=== PATIENT | female | born 1990 | race Two or more races ===

== ENCOUNTER 2020-10-21 09:16 | Day surgery (SDC) | payer OTHER ==
[~2020-10-21 09:16] MED LIST: NAPROXEN SODIU550 M1 PO; VITAMIN D3 PO; ZINC50 M1 PO; [UNRECOGNIZED DRUG - OTHER] PO
== END 2020-10-21 17:45 | disposition home or self-care (01) ==
LOC: CIR.AMB 09:16
PROVIDERS: ATTEND Obstetrics & Gynecology
DX: N84.0 Polyp of corpus uteri (principal); Z20.822 Contact with and (suspected) exposure to COVID-19

== ENCOUNTER 2023-09-20 06:46 | Emergency (ER) | payer OTHER ==
[~2023-09-20] VITALS: Ht 167.6 cm; Wt 73.9 kg
[2023-09-20 08:32] LABS: URINE APPEARANCE Clear; URINE BILIRRUBIN Negative (NEGATIVE); URINE BLOOD Large; URINE COLOR Yellow; URINE GLUCOSE Negative (NEGATIVE); URINE LEUKOCYTE Negative; URINE NITRATE Negative; URINE PROTEIN Negative (NEGATIVE); URINE UROBILINOGEN 0.2 E.U./dl
[2023-09-20 08:33] LABS: HEMATOCRIT 42.7 % (36.0-45.00); HEMOGLOBIN 14.3 g/dL (12.0-15.00); MEAN CORPUSCULAR HEMOGLOBIN 26.8 pg (27.00-32.0); MEAN CORPUSCULAR HGB CONC 33.5 g/dl (32.0-36.0); PLATELET COUNT 292 K/uL (150-450); RED BLOOD COUNT 5.33 M/uL (4.00-6.00); RED CELL DISTRIBUTION WIDTH 14.7 % (11.5-14.5); URINE EPITHELIAL CELLS 15.6 uL (0.0-38.8); URINE WBC 7.8 uL (0.0-23.2)
[2023-09-20 09:11] LABS: INR 1.03; PARTIAL THROMBOPLASTIN TIME 26.8 SECONDS (22.0-34.0); PROTHROMBIN TIME 10.8 SECONDS (9.0-11.5)
[2023-09-20 09:24] LABS: CALCIUM 9.1 mg/dL (8.5-10.1); CREATININE SERUM 0.77 mg/dL (0.55-1.02); GFR 85.81; POTASSIUM 3.73 mEq/L (3.5-5.1)
== END 2023-09-20 13:12 | disposition home or self-care (01) ==
LOC: ER 06:46
PROVIDERS: General Practice
DX: O20.9 Hemorrhage in early pregnancy, unspecified (principal); Z3A.01 Less than 8 weeks gestation of pregnancy

== ENCOUNTER 2023-10-09 08:03 | Outpatient (CLI) | payer OTHER | END 2023-10-09 08:04 | disposition home or self-care (01) | LOC: PRENATAL 08:03 | PROVIDERS: ATTEND Obstetrics & Gynecology Maternal & Fetal Medicine | DX: O36.80X0 Pregnancy with inconclusive fetal viability, not applicable or unspecified (principal); O09.519 Supervision of elderly primigravida, unspecified trimester; O26.899 Other specified pregnancy related conditions, unspecified trimester; Z3A.08 8 weeks gestation of pregnancy ==

== ENCOUNTER → 2023-11-09 08:49 | Outpatient (CLI) | payer OTHER | END | disposition home or self-care (01) | LOC: PRENATAL 08:49 | PROVIDERS: ATTEND Obstetrics & Gynecology Maternal & Fetal Medicine | DX: O36.80X0 Pregnancy with inconclusive fetal viability, not applicable or unspecified (principal); O09.519 Supervision of elderly primigravida, unspecified trimester; Z36.82 Encounter for antenatal screening for nuchal translucency; Z36.9 Encounter for antenatal screening, unspecified; Z3A.13 13 weeks gestation of pregnancy ==

== ENCOUNTER 2023-11-26 13:51 | Emergency (ER) | payer OTHER ==
[~2023-11-26] VITALS: Ht 170.2 cm; Wt 75.3 kg
[2023-11-26] MEDS ORDERED: PRENA1 TRUE CO1 EACH PO (14:18)
[2023-11-26 17:30] LABS: HEMATOCRIT 39.1 % (36.0-45.00); HEMOGLOBIN 13.5 g/dL (12.0-15.00); MEAN CELL VOLUME 79.9 fL (80.00-100.00); MEAN CORPUSCULAR HEMOGLOBIN 27.5 pg (27.00-32.0); MEAN CORPUSCULAR HGB CONC 34.4 g/dl (32.0-36.0); PLATELET COUNT 253 K/uL (150-450); RED CELL DISTRIBUTION WIDTH 14.4 % (11.5-14.5)
[2023-11-26 17:41] LABS: INR 0.98; PARTIAL THROMBOPLASTIN TIME 26.1 SECONDS (22.0-34.0); PROTHROMBIN TIME 10.3 SECONDS (9.0-11.5)
[2023-11-26 18:12] LABS: ALBUMIN 3.5 gm/dL (3.4-5.0); BILIRUBIN TOTAL 0.21 mg/dL (0.3-1.2); CALCIUM 9.3 mg/dL (8.5-10.1); CREATININE SERUM 0.62 mg/dL (0.55-1.02); GFR 110.19; GLOBULINA 3.3 G/DL (2.4-3.5); POTASSIUM 3.93 mEq/L (3.5-5.1); TOTAL PROTEIN 6.8 gm/dL (6.4-8.2)
[2023-11-26 19:55] LABS: URINE APPEARANCE Clear; URINE BILIRRUBIN Negative (NEGATIVE); URINE BLOOD Negative; URINE COLOR Yellow; URINE LEUKOCYTE Trace; URINE NITRATE Negative; URINE PROTEIN Negative (NEGATIVE); URINE UROBILINOGEN 0.2 E.U./dl
[2023-11-26 19:58] LABS: URINE BACTERIA 433.3 uL (0.0-1933); URINE EPITHELIAL CELLS 23.7 uL (0.0-38.8); URINE RBC 4.4 uL (0.0-20.8); URINE WBC 15.6 uL (0.0-23.2)
[2023-11-26 20:14] LABS: URINE GLUCOSE 100 MG/DL (NEGATIVE)
== END 2023-11-26 20:30 | disposition home or self-care (01) ==
LOC: ER 13:52
PROVIDERS: General Practice
DX: O20.8 Other hemorrhage in early pregnancy (principal); Z3A.15 15 weeks gestation of pregnancy

== ENCOUNTER 2023-11-29 13:58 | Outpatient (CLI) | payer OTHER ==
[~2023-11-29 13:58] MED LIST changes: +PRENA1 TRUE CO1 EACH PO
== END 2023-11-29 14:05 | disposition home or self-care (01) ==
LOC: PRENATAL 13:58
PROVIDERS: ATTEND Obstetrics & Gynecology Maternal & Fetal Medicine
DX: O26.849 Uterine size-date discrepancy, unspecified trimester (principal); O26.879 Cervical shortening, unspecified trimester; Z3A.16 16 weeks gestation of pregnancy

== ENCOUNTER 2023-12-05 08:59 | Day surgery (SDC) | payer OTHER ==
[2023-12-05] MEDS ORDERED: METRONIDAZOLE/SODIUM CHLORIDE 500 MG/100 ML PIGGYBACK IV ONE ×2 (13:53→17:00)
[2023-12-05] MEDS ORDERED: POVIDONE-IODINE 118 ML BOTT TOP ONE ×2 (15:37→17:00)
== END 2023-12-05 21:40 | disposition home or self-care (01) ==
LOC: CIR.AMB 08:59
PROVIDERS: ATTEND Obstetrics & Gynecology Maternal & Fetal Medicine
DX: O26.872 Cervical shortening, second trimester (principal); Z3A.16 16 weeks gestation of pregnancy

== ENCOUNTER 2023-12-25 11:13 | Outpatient (CLI) | payer OTHER | END 2023-12-25 11:14 | disposition home or self-care (01) | LOC: PRENATAL 11:13 | PROVIDERS: ATTEND Obstetrics & Gynecology Maternal & Fetal Medicine | DX: O35.3XX0 Maternal care for (suspected) damage to fetus from viral disease in mother, not applicable or unspecified (principal); O44.00 Complete placenta previa NOS or without hemorrhage, unspecified trimester; O09.519 Supervision of elderly primigravida, unspecified trimester; Z3A.19 19 weeks gestation of pregnancy ==

== ENCOUNTER 2024-04-08 10:51 | Outpatient (CLI) | payer OTHER | END 2024-04-08 10:52 | disposition home or self-care (01) | LOC: PRENATAL 10:51 | PROVIDERS: ATTEND Obstetrics & Gynecology Maternal & Fetal Medicine | DX: O26.843 Uterine size-date discrepancy, third trimester (principal); O36.8130 Decreased fetal movements, third trimester, not applicable or unspecified; O09.513 Supervision of elderly primigravida, third trimester; O34.33 Maternal care for cervical incompetence, third trimester; Z3A.34 34 weeks gestation of pregnancy ==

== ENCOUNTER 2024-04-19 22:53 | Inpatient (IN) | payer OTHER ==
[~2024-04-19] VITALS: Ht 170.2 cm; Wt 81.2 kg
[2024-04-19] MEDS ORDERED: AMPICILLIN SODIUM 2,000 MG VIAL IV STA (22:54)
[2024-04-19] MEDS ORDERED: MISOPROSTOL 25 MCG/4 ML GEL.W.APPL VAG STA (22:57)
[2024-04-19] MEDS ORDERED: RINGERS SOLUTION,LACTATED 1,000 ML IV SCH (23:00)
[2024-04-19 23:31] LABS: HEMATOCRIT 40.2 % (36.0-45.00); HEMOGLOBIN 13.5 g/dL (12.0-15.00); MEAN CELL VOLUME 77.7 fL (80.00-100.00); MEAN CORPUSCULAR HEMOGLOBIN 26.1 pg (27.00-32.0); MEAN CORPUSCULAR HGB CONC 33.6 g/dl (32.0-36.0); PH,URINE 5.5 (5.0-8.0); PLATELET COUNT 178 K/uL (150-450); RED BLOOD COUNT 5.17 M/uL (4.00-6.00); RED CELL DISTRIBUTION WIDTH 13.8 % (11.5-14.5); URINE APPEARANCE Clear; URINE BILIRRUBIN Negative (NEGATIVE); URINE BLOOD Small; URINE COLOR Yellow; URINE GLUCOSE Negative (NEGATIVE); URINE KETONE Trace (NEGATIVE); URINE LEUKOCYTE Negative; URINE NITRATE Negative; URINE PROTEIN Negative (NEGATIVE); URINE UROBILINOGEN 0.2 E.U./dl
[2024-04-19 23:34] LABS: URINE BACTERIA 1297.6 uL (0.0-1933); URINE EPITHELIAL CELLS 17.1 uL (0.0-38.8); URINE RBC 22.2 uL (0.0-20.8); URINE WBC 9.1 uL (0.0-23.2)
[2024-04-20] LABS: INR 0.96; PARTIAL THROMBOPLASTIN TIME 25.7 SECONDS (22.0-34.0); PROTHROMBIN TIME 10.1 SECONDS (9.0-11.5)
[2024-04-20 00:34] LABS: CREATININE SERUM 0.73 mg/dL (0.55-1.02); GFR 90.72; POTASSIUM 4.09 mEq/L (3.5-5.1)
[2024-04-20] MEDS ORDERED: AMPICILLIN SODIUM 1,000 MG VIAL IV SCH (04:00)
[2024-04-20] MEDS ORDERED: CHLORHEXIDINE GLUCONATE 120 ML BOTTLE TOP ONE (06:20)
[2024-04-20] MEDS ORDERED: ERYTHROMYCIN BASE 1 GM TUBE OP ONE (06:20)
[2024-04-20] MEDS ORDERED: LIDOCAINE HCL 1% 10ML VIAL ONE (06:20)
[2024-04-20] MEDS ORDERED: OXYTOCIN 20 UNITS/1000ML RL PIGGYBAG IV ONE (06:20)
[2024-04-20] MEDS ORDERED: OXYTOCIN 10 UNITS/ML VIAL ONE (06:21)
[2024-04-20] MEDS ORDERED: OXYTOCIN 20 UNITS/500ML RL PIGGYBAG IV ONE ×2 (07:17→10:30)
[2024-04-20] MEDS ORDERED: IBUprofen 400 MG TABLET PO PRN (08:45)
[2024-04-20] MEDS ORDERED: OXYTOCIN 1,000 ML IV SCH (09:15)
[2024-04-20] MEDS ORDERED: CHLORHEXIDINE GLUCONATE 120 ML BOTTLE TP SCH (09:15)
[2024-04-20] MEDS ORDERED: ERYTHROMYCIN BASE 1 GM TUBE OP SCH (09:15)
[2024-04-20] MEDS ORDERED: OXYTOCIN 10 UNITS/ML VIAL IM STA (09:15)
[2024-04-20] MEDS ORDERED: OXYTOCIN 500 ML IV ONE (10:30)
[2024-04-20 11:35] LABS: ABG PH 7.292 (7.35-7.45); ABG pCO2 47.1 mmHg (35-45); BASE EXCESS -4.5 mmol/l; SaO2 36.6 %
[2024-04-20 11:36] LABS: ABG PO2 25.2 mmHg (80-100); BICARBONATE 22.2 mmol/l (23-25); Tco2 23.7 mmol/l; o2 21 %; puncture site UMBILICAL
[2024-04-20 14:21] LABS: HEMATOCRIT 38.1 % (36.0-45.00); HEMOGLOBIN 12.8 g/dL (12.0-15.00); MEAN CELL VOLUME 77.7 fL (80.00-100.00); MEAN CORPUSCULAR HEMOGLOBIN 26.2 pg (27.00-32.0); MEAN CORPUSCULAR HGB CONC 33.7 g/dl (32.0-36.0); PLATELET COUNT 180 K/uL (150-450); RED BLOOD COUNT 4.91 M/uL (4.00-6.00); RED CELL DISTRIBUTION WIDTH 13.6 % (11.5-14.5)
== END 2024-04-22 10:23 | disposition home or self-care (01) | DRG 805 ==
LOC: LDR 22:53 → OB/GYN 04-20 11:35
PROVIDERS: Obstetrics & Gynecology; ADMIT Obstetrics & Gynecology; ATTEND Obstetrics & Gynecology
PROC: 3E033VJ Introduction of Other Hormone into Peripheral Vein, Percutaneous Approach (ICD-10-PCS; 2024-04-19)
PROC: 10E0XZZ Delivery of Products of Conception, External Approach (ICD-10-PCS; principal; 2024-04-20)
PROC: 0HQ9XZZ Repair Perineum Skin, External Approach (ICD-10-PCS; 2024-04-20)
PROC: 4A1HXCZ Monitoring of Products of Conception, Cardiac Rate, External Approach (ICD-10-PCS; 2024-04-20)
PROC: 3E0P7VZ Introduction of Hormone into Female Reproductive, Via Natural or Artificial Opening (ICD-10-PCS; 2024-04-20)
DX: O70.0 First degree perineal laceration during delivery (principal); O60.14X0 Preterm labor third trimester with preterm delivery third trimester, not applicable or unspecified; Z37.0 Single live birth; O42.013 Preterm premature rupture of membranes, onset of labor within 24 hours of rupture, third trimester; Z3A.36 36 weeks gestation of pregnancy; Z20.822 Contact with and (suspected) exposure to COVID-19